=== PATIENT | female | born 1965 | race Caucasian/White ===

== ENCOUNTER 2016-06-06 10:33 | Day surgery (SDC) | payer BC ==
[~2016-06-06] VITALS: Ht 162.6 cm; Wt 77.3 kg
[2016-06-06 11:09] VITALS: Ht 162.6 cm; Wt 77.3 kg
[2016-06-06] MEDS ORDERED: OMEP20CA16 PO (11:15)
[2016-06-06] MEDS ORDERED: OLME20TA20 PO (11:15)
[2016-06-06 11:16] VITALS: BP 146/77; PULSE 82; RESP 22
[2016-06-06] MEDS ORDERED: MIDAZOLAM 1 MG/ML 2 ML INJ ONE ×3 (11:55→11:56)
[2016-06-06] MEDS ORDERED: FENTAnyl 50 MCG/ML VIAL ONE (11:56)
--- NOTE | 2016-06-06 12:12 | GILP ---
DATE OF PROCEDURE: 06/06/2016 PROCEDURE: EGD with biopsy. INDICATION: A 50-year-old female undergoing this procedure for persistent epigastric pain and heart burn. The purpose is to evaluate upper GI tract and find out the cause of her symptoms. The risk o f the procedure, related and unrelated complications, sedative risks, alternatives discussed and inf ormed consent was obtained. DESCRIPTION OF PROCEDURE: The patient was brought to the GI lab, sedated with Versed 7 mg, fentanyl 100 mg. After optimum sedation, scope was passed with much ease into esophagus which was grossly w ithin normal limits. The introitus was normal. The proximal esophagus mid and distal part was norm al. Z line was at 35 cm. There were 2 tongue-like projections biopsied, one of them to rule out Ba rrett's. Stomach mucosa revealed gastritis. Four biopsies obtained to rule out H. pylori infection . Duodenum, first and second part including ampulla appeared normal. Retroversion also was normal. Scope was straightened out and removed with good patient tolerance. IMPRESSION: 1. Normal esophagus. 2. Normal Z-line at 35 cm with 2 tongue-like projections biopsied to rule out Steiner's. 3. Chronic gastritis. 4. Normal duodenum. PLAN: Review histopathology. ADDENDUM: The patient had rectal bleeding. We asked for a colonoscopy authorization. The [employer] refused, so with the help of patient's permission prior to the sedation and I did a digita l examination. External hemorrhoids were visible and there was no blood seen on the fingertip. If the patient continues to bleed, then she definitely needs a colonoscopy. Dictated By: GERMÁN WAN MD PJ/NTS Conf#: [id number] DID#: [id number] CC: SAM BENOIT MD; GERMÁN WAN MD;*EndCC*
[2016-06-06 12:18] VITALS: BP 116/70; PULSE 90; RESP 24
== END 2016-06-06 16:38 | disposition home or self-care (01) ==
LOC: GIL 10:33
PROVIDERS: ATTEND Internal Medicine Gastroenterology
DX: K29.50 Unspecified chronic gastritis without bleeding (principal); K21.0 Gastro-esophageal reflux disease with esophagitis
CPT/HCPCS: 43239; 84703; 88305; 88312; 88313; J2250; J3010; Z7610